=== PATIENT | male | born 1985 | race Two or more races ===

== ENCOUNTER 2019-04-18 22:46 | Emergency (ER) | payer BC, MEDICAID ==
[~2019-04-18] VITALS: Ht 165.1 cm; Wt 68.0 kg
[2019-04-18 22:54] VITALS: BP 134/84
[2019-04-19] MEDS ORDERED: TETANUS-DIPTH-ACEL PERTUSSIS 0.5ML SYRG IM ONE (01:45)
[2019-04-19] MEDS ORDERED: cefTRIAXone SOD 1,000 MG VL IM ONE (02:15)
== END 2019-04-19 02:25 | disposition home or self-care (01) ==
LOC: ER 22:46
DX: L02.416 Cutaneous abscess of left lower limb (principal); F12.10 Cannabis abuse, uncomplicated
CPT/HCPCS: 90471; 90715; 96372; 99284; J0696